=== PATIENT | male | born 1970 | race African-American/Black ===

== ENCOUNTER 2023-11-21 10:21 | Emergency (ER) | payer SELFPAY ==
[~2023-11-21] VITALS: Ht 172.7 cm; Wt 81.0 kg
[2023-11-21] VITALS (15 sets, daily range): BP systolic 114–145; BP diastolic 57–95
[2023-11-21] MEDS ORDERED: KETOROLAC TROMETHAMINE 30 MG/ML SDV IM ONE (11:10)
[2023-11-21] MEDS ORDERED: ONDANSETRON 4 MG/TAB ODT PO ONE (12:35)
[2023-11-21] MEDS ORDERED: MORPHINE SULFATE 4 MG/ML VIAL IM ONE (12:35)
[2023-11-21] MEDS ORDERED: TRAMADOL HYDROC50 M1 PO (12:37)
[2023-11-21] MEDS ORDERED: MOTRIN400 MG/TAB PO (12:37)
== END 2023-11-21 14:02 | disposition home or self-care (01) | DRG 563 ==
LOC: ED 10:21
DX: S92.351A Displaced fracture of fifth metatarsal bone, right foot, initial encounter for closed fracture (principal); I10 Essential (primary) hypertension; V09.20XA Pedestrian injured in traffic accident involving unspecified motor vehicles, initial encounter; Y93.89 Activity, other specified; Y92.89 Other specified places as the place of occurrence of the external cause; Y99.0 Civilian activity done for income or pay